=== PATIENT | male | born 1990 | race Caucasian/White ===

== ENCOUNTER 2019-10-10 11:22 | Emergency (ER) | payer SELFPAY ==
--- NOTE | 2019-10-10 11:59 | CT ---
Exam: CT brain PROVIDED CLINICAL HISTORY: Altered mental status COMPARISON: None FINDINGS: The ventricular system is normal in size and morphology. No evidence for intracranial hemorrhage or mass effect. The extracranial soft tissues and osseous structures demonstrate no evidence for an acute abnormality. IMPRESSION: No evidence for intracranial hemorrhage or mass effect.
[2019-10-10 12:25] LABS: #Eosinphils 0.2 thou/uL (0.0-0.7); #Lymphocytes 1.2 thou/uL (1.20-3.40); #Monocytes 0.5 thou/uL (0.11-0.59); #Neutrophils 6.9 thou/uL (1.40-6.50); %Basophils 0.2 % (0.0-1.0); %Eosinophils 2.1 % (0.0-10.0); %Lymphocytes 13.5 % (21.0-51.0); %Monocytes 5.8 % (0.0-10.0); %Neutrophils 78.4 % (42.0-75.0); Hemoglobin 16.5 g/dL (14.0-18.0); Mean Corpuscular HGB CONC 36.3 g/dL (32.0-36.0); Mean Corpuscular Hemoglobin 33.5 pg (27.0-31.0); Mean Corpuscular Volume 92.2 fL (78.0-98.0); Mean Platelet Volume 8.1 fL (7.4-10.4); Platelet Count 138 thou/uL (130-400); RBC Distribution Width 11.8 % (11.5-14.5); Red Blood Cell (RBC) Count 4.95 mill/uL (4.70-6.10); White Blood Cell (WBC) Count 8.8 thou/uL (4.8-10.8)
[2019-10-10 12:49] LABS: ALT (SGPT) 14 U/L (8-55); AST (SGOT) 17 U/L (5-34); Albumin 4.6 g/dL (3.5-5.0); Alkaline Phosphatase 65 U/L (40-110); Anion Gap 14 mmol/L (10-20); BUN (Urea Nitrogen) 20 mg/dL (8.9-20.6); Bilirubin, Total 1.3 mg/dL (0.2-1.2); Calc. Creatinine Clearance 0 mL/min (70-130); Calcium 8.6 mg/dL (7.8-10.44); Carbon Dioxide 22 mmol/L (22-29); Chloride 105 mmol/L (98-107); Estimated GFR-MDRD 81; Globulin 2.5 g/dL (2.4-3.5); Glucose 87 mg/dL (70-105); Protein, Total 7.1 g/dL (6.0-8.3); Sodium 137 mmol/L (136-145)
--- NOTE | 2019-10-13 14:16 | EKG ---
Test Reason : Blood Pressure : / mmHG Vent. Rate : 110 BPM Atrial Rate : 110 BPM P-R Int : 150 ms QRS Dur : 118 ms QT Int : 368 ms P-R-T Axes : 046 054 039 degrees QTc Int : 498 ms Sinus tachycardia Non-specific intra-ventricular conduction delay Borderline ECG Confirmed by DEMARIO TONY, UNRULY ([id number]), newspaper managing editor ORIANA SRIVASTAVA ([id number]) on 10/13/2019 2:16:21 PM Referred By: Confirmed By:UNRULY HANKS MD
== END 2019-10-10 14:05 | disposition home or self-care (01) ==
LOC: ERS 11:22
DX: R56.9 Unspecified convulsions (principal); F41.9 Anxiety disorder, unspecified; F17.210 Nicotine dependence, cigarettes, uncomplicated; Z79.899 Other long term (current) drug therapy
CPT/HCPCS: 36415; 70450; 80053; 84146; 85025; 93005; 96360; 96361